=== PATIENT | female | born 1955 | race Caucasian/White ===

== ENCOUNTER 2019-12-11 10:04 | Emergency (ER) | payer BC, MEDICARE ==
[~2019-12-11] VITALS: Ht 148.6 cm; Wt 88.8 kg
[2019-12-11 11:35] VITALS: BP 144/76
== END 2019-12-11 12:34 | disposition home or self-care (01) ==
LOC: ER 10:06
DX: S52.591A Other fractures of lower end of right radius, initial encounter for closed fracture (principal); S00.81XA Abrasion of other part of head, initial encounter; S80.212A Abrasion, left knee, initial encounter; M25.562 Pain in left knee; M79.641 Pain in right hand; Z98.890 Other specified postprocedural states; Z56.0 Unemployment, unspecified; Z88.2 Allergy status to sulfonamides; Z88.8 Allergy status to other drugs, medicaments and biological substances; W18.39XA Other fall on same level, initial encounter; Y93.89 Activity, other specified; Y92.89 Other specified places as the place of occurrence of the external cause; Y99.8 Other external cause status
CPT/HCPCS: 29125; 73110; 99284

== ENCOUNTER 2023-12-13 08:11 | Day surgery (SDC) | payer MEDICARE, OTHER ==
[~2023-12-13] VITALS: Ht 149.9 cm; Wt 90.4 kg
[2023-12-13] VITALS (11 sets, daily range): BP systolic 110–140; BP diastolic 60–93; PULSE 62–74; RESP 10–14; TEMP 98.2; O2SAT 92–96
[2023-12-13] MEDS ORDERED: CARV-50 PO (09:24)
[2023-12-13] MEDS ORDERED: OXYB5TAB21 PO (09:24)
[2023-12-13] MEDS ORDERED: ATOR40TA72 PO (09:24)
[2023-12-13] MEDS ORDERED: PANT40TA54 PO (09:24)
[2023-12-13] MEDS ORDERED: TRAZ-251 PO (09:24)
[2023-12-13] MEDS ORDERED: ESCI-8 PO (09:24)
[2023-12-13 09:45] LABS: BASOPHILS % (AUTO) 0.6 % (0-1); EOSINOPHILS # (AUTO) 0.1 X10'3 (0-0.9); EOSINOPHILS % (AUTO) 1.9 % (0-6); HEMATOCRIT 38.4 % (35.0-45.0); HEMOGLOBIN 12.5 g/dl (12.0-16.0); LYMPHOCYTES # (AUTO) 1.3 X10'3 (1.1-4.8); LYMPHOCYTES % (AUTO) 22.6 % (21-51); MEAN CORPUSCULAR HEMOGLOBIN 30.9 PG (27.0-31.0); MEAN CORPUSCULAR HGB CONC 32.5 g/dL (33.0-36.5); MEAN CORPUSCULAR VOLUME 95.1 FL (78-98); MEAN PLATELET VOLUME 7.6 FL (7.4-10.4); MONOCYTES # (AUTO) 0.4 X10'3 (0-0.9); MONOCYTES % (AUTO) 6.8 % (2-12); NEUTROPHILS # (AUTO) 3.9 X10'3 (1.8-7.7); NEUTROPHILS % (AUTO) 68.1 % (42-75); PLATELET COUNT 196 X10'3 (140-440); RED BLOOD COUNT 4.04 X10'6 (4.20-5.60); RED CELL DISTRIBUTION WIDTH 13.7 % (11.5-14.5); WHITE BLOOD COUNT 5.7 X10'3 (4.5-11.0)
[2023-12-13] MEDS ORDERED: sodium bicarbonate 1meq/ml syr 150 ML in dextrose 5%-water 1,000 ML IV SCH (09:50)
[2023-12-13 09:51] LABS: PROTHROMBIN TIME 10.8 SECONDS (9.0-12.0)
[2023-12-13] MEDS: diphenhydrAMINE 25mg capsule PO PRN (10:26)
[2023-12-13] MEDS: sodium bicarbonate 1meq/ml syr 150 ML in dextrose 5%-water 1,000 ML IV ONE (10:26)
[2023-12-13] MEDS: normal saline 1,000 ML IV SCH (10:26)
[2023-12-13 11:57] LABS: ALBUMIN 3.3 G/DL (3.4-5.0); ANION GAP 9 (8-16); BLOOD UREA NITROGEN 15 MG/DL (7-18); BUN/CREATININE RATIO 26.8 (10.0-20.0); CALCIUM 9.3 MG/DL (8.5-10.1); CHLORIDE 107 MMOL/L (99-107); CREATININE 0.56 MG/DL (0.40-0.90); GLUCOSE 105 MG/DL (70-104); MAGNESIUM 1.8 MG/DL (1.5-2.4); POTASSIUM 4.5 MMOL/L (3.5-5.1); SODIUM 143 MMOL/L (135-145); TOTAL CARBON DIOXIDE 27.2 MMOL/L (24-32); eCRCL 64 ML/MIN; eGFR > 90 ML/MIN
[2023-12-13] MEDS ORDERED: fentaNYL/PF 50MCG/1 ML 2ML syringe ONE (12:44)
[2023-12-13] MEDS ORDERED: midazolam 1 mg/ML 2ml injection ONE ×2 (12:44→13:15)
[2023-12-13] MEDS ORDERED: verapamil 2.5 mg/ml inj IV ONE (12:44)
[2023-12-13] MEDS ORDERED: heparin 1,000unit/ml 10ml vial 10 ML ONE (12:45)
[2023-12-13] MEDS ORDERED: iohexol 350MG/ML 100ml bottle IV ONE (12:45)
[2023-12-13] MEDS ORDERED: iohexol 350 MG/ML 50ML vial IV ONE (12:45)
[2023-12-13] MEDS ORDERED: nitroGLYCERIN 500mcg/5mL D5W 5 ML IV ONE (12:48)
[2023-12-13] MEDS ORDERED: LIDOcaine 1% 30ml preserv. free vial ONE (12:58)
[2023-12-13] MEDS ORDERED: ondansetron/PF 4mg/2ml inj IV PRN (15:00)
[2023-12-13] MEDS ORDERED: proCHLORperazine 10 MG/2 ml inj IV PRN (15:00)
[2023-12-13] MEDS ORDERED: HYDROcodone/acetaminophen 5mg/325mg tablet PO PRN (15:00)
[2023-12-13] MEDS ORDERED: HYDROcodone/acetaminophen 10/325mg tab PO PRN (15:00)
[2023-12-13] MEDS ORDERED: OXAZEpam 15mg capsule PO PRN (15:00)
== END 2023-12-13 17:00 | disposition home or self-care (01) ==
LOC: SSTAY O 08:11
PROVIDERS: ATTEND Internal Medicine Cardiovascular Disease
DX: R07.89 Other chest pain (principal); I25.10 Atherosclerotic heart disease of native coronary artery without angina pectoris; I10 Essential (primary) hypertension; E78.00 Pure hypercholesterolemia, unspecified; K21.9 Gastro-esophageal reflux disease without esophagitis; Z79.899 Other long term (current) drug therapy; Z98.890 Other specified postprocedural states
CPT/HCPCS: 36415; 80048; 83735; 85025; 85610; 93005; 93458; 99152; 99153; A6258; A6402; C1894; J1644; J2001; J2250; J3010; J3490; J7030; J7070; Q0163; Q9967; Z7610